=== PATIENT | female | born 1990 | race African-American/Black ===

== ENCOUNTER 2019-09-25 08:53 | Inpatient (IN) | payer OTHER ==
[2019-09-26] MEDS ORDERED: Promethazine HCl 25 MG/ML VIAL IM PRN ×2 (16:05→17:40)
[2019-09-26] MEDS ORDERED: Lactated Ringer's 1,000 ML IV SCH (16:05)
[2019-09-26] MEDS ORDERED: hydrALAZINE 20 MG/ML VIAL SLOW IVP PRN ×2 (16:05→19:21)
[2019-09-26] MEDS ORDERED: Ondansetron PF 4 MG/2 ML Vial IVP PRN ×3 (16:05→19:21)
[2019-09-26 16:13] VITALS: BMI 37.1
[2019-09-26] MEDS ORDERED: CEFAZOLIN 2 GM in Premix Bag 1 BAG IVPB SCH (16:15)
[2019-09-26] MEDS ORDERED: Bicitra 30 ML UDCUP PO SCH (16:15)
[2019-09-26 16:28] LABS: Hemoglobin 12.7 g/dL (12.0-16.0); Mean Corpuscular HGB CONC 34.7 g/dL (32.0-36.0); Mean Corpuscular Hemoglobin 29.6 pg (27.0-31.0); Mean Corpuscular Volume 85.2 fL (78.0-98.0); Mean Platelet Volume 8.6 fL (7.4-10.4); Platelet Count 180 thou/uL (130-400); RBC Distribution Width 12.2 % (11.5-14.5); Red Blood Cell (RBC) Count 4.29 mill/uL (4.20-5.40); White Blood Cell (WBC) Count 7.4 thou/uL (4.8-10.8)
[2019-09-26] MEDS ORDERED: Oxytocin 10 UNITS/ML VIAL ONE ×2 (16:52→18:52)
[2019-09-26] MEDS ORDERED: PHENYLEPHRINE-NS 100 MCG/ML 10 ML SYRINGE ONE (16:52)
[2019-09-26] MEDS ORDERED: MORPHINE 5 MG/10 ML PF VIAL ONE (16:52)
[2019-09-26 17:10] LABS: Syphilis Antibody Nonreactive (Nonreactive); Syphilis Antibody Index 0.04 S/CO (<1.00 Non-Reactive)
[2019-09-26] MEDS ORDERED: diphenhydrAMINE 50 MG/ML VIAL IVP PRN (17:40)
[2019-09-26] MEDS ORDERED: L&D-Morphine 4 MG/ML VIAL SLOW IVP PRN (17:40)
[2019-09-26] MEDS ORDERED: Naloxone HCl 0.4 mg/ml Vial IV PRN (17:40)
[2019-09-26] MEDS ORDERED: Ketorolac Tromethamine 30 MG/ML VIAL IVP PRN (17:40)
[2019-09-26] MEDS ORDERED: HYDROmorphone 2 MG/ML VIAL SLOW IVP PRN (17:40)
[2019-09-26] MEDS ORDERED: Ondansetron HCl/PF 4 MG/2 ML Vial IVP PRN (17:40)
[2019-09-26] MEDS ORDERED: Promethazine HCl 25 MG SUPP PR PRN (17:40)
[2019-09-26] MEDS ORDERED: Naloxone HCl 0.4 mg/ml Vial IVP PRN ×2 (17:40)
[2019-09-26] MEDS ORDERED: Meperidine HCl/PF 25 MG/ML VIAL SLOW IVP PRN (17:40)
[2019-09-26] MEDS ORDERED: Ketorolac Tromethamine 30 MG/ML VIAL IVP SCH (17:45)
[2019-09-26] MEDS ORDERED: Communication Order-Pharmacy FS SCH (17:45)
[2019-09-26 18:22] LABS: HBSAg Index 0.18 S/CO (0-0.99); Hep B Surf Ag NonReactive S/CO (NonReactive)
[2019-09-26] MEDS ORDERED: Bicitra 30 ML UDCUP ONE (18:31)
[2019-09-26] MEDS ORDERED: diphenhydrAMINE 25 MG CAP PO PRN (19:21)
[2019-09-26] MEDS ORDERED: Zolpidem Tartrate 5 MG TAB PO PRN (19:21)
[2019-09-26] MEDS ORDERED: Adacel (T-DAP) 0.5 ML SYRINGE IM ONE (19:21)
[2019-09-26] MEDS ORDERED: Bisacodyl 10 MG SUPP PR PRN (19:21)
[2019-09-26] MEDS ORDERED: Misoprostol 200 MCG TAB PR PRN (19:21)
[2019-09-26] MEDS ORDERED: Lanolin Ointment 7 GM TUBE TOP PRN (19:21)
[2019-09-26] MEDS ORDERED: Meperidine HCl/PF 25 MG/ML VIAL IM PRN (19:21)
[2019-09-26] MEDS ORDERED: Acetaminophen 325 MG TAB PO PRN (19:21)
[2019-09-26] MEDS ORDERED: NS / Oxytocin 40 units/1000ml 1,000 ML IV SCH (19:30)
[2019-09-26] MEDS ORDERED: Ketorolac Tromethamine 30 MG/ML VIAL ONE (20:06)
[2019-09-26] MEDS ORDERED: diphenhydrAMINE 50 MG/ML VIAL ONE (21:08)
[2019-09-27] MEDS: Docusate Calcium (SURFAK) 240 MG CAP PO SCH ×3 (01:40→21:23)
[2019-09-27] MEDS: Ibuprofen 800 MG TAB PO SCH ×4 (01:40→21:23)
[2019-09-27] MEDS: Ferrous Sulfate 325 MG TAB PO SCH ×3 (01:40→22:23)
[2019-09-27] MEDS: Simethicone Chewable 80 MG TAB PO PRN ×4 (01:46→22:12)
[2019-09-27] MEDS: Lactated Ringer's 1,000 ML IV SCH ×4 (01:46→21:33)
[2019-09-27 06:36] LABS: Hemoglobin 10.8 g/dL (12.0-16.0); Mean Corpuscular HGB CONC 34.3 g/dL (32.0-36.0); Mean Corpuscular Hemoglobin 29.4 pg (27.0-31.0); Mean Corpuscular Volume 85.7 fL (78.0-98.0); Mean Platelet Volume 8.6 fL (7.4-10.4); Platelet Count 140 thou/uL (130-400); RBC Distribution Width 12.1 % (11.5-14.5); Red Blood Cell (RBC) Count 3.66 mill/uL (4.20-5.40); White Blood Cell (WBC) Count 10.1 thou/uL (4.8-10.8)
[2019-09-27] MEDS: Prenatal Vitamin 1 TAB PO SCH (09:44)
[2019-09-27] MEDS: HYDROcodone/Acetaminophen 5/325 mg Tablet PO PRN ×4 (09:44→22:10)
[2019-09-28] MEDS: Simethicone Chewable 80 MG TAB PO PRN ×4 (02:00→21:52)
[2019-09-28] MEDS: Lactated Ringer's 1,000 ML IV SCH ×3 (03:50→22:44)
[2019-09-28] MEDS: Ibuprofen 800 MG TAB PO SCH ×3 (06:19→21:51)
[2019-09-28] MEDS: HYDROcodone/Acetaminophen 5/325 mg Tablet PO PRN ×2 (06:28→12:05)
[2019-09-28] MEDS: Prenatal Vitamin 1 TAB PO SCH (08:59)
[2019-09-28] MEDS: Ferrous Sulfate 325 MG TAB PO SCH ×2 (08:59→22:45)
[2019-09-28] MEDS: Docusate Calcium (SURFAK) 240 MG CAP PO SCH ×2 (08:59→21:52)
[2019-09-29] MEDS: HYDROcodone/Acetaminophen 5/325 mg Tablet PO PRN (03:34)
[2019-09-29] MEDS: Ibuprofen 800 MG TAB PO SCH (06:05)
[2019-09-29] MEDS: Lactated Ringer's 1,000 ML IV SCH (06:05)
[2019-09-29] MEDS: Ferrous Sulfate 325 MG TAB PO SCH (08:49)
[2019-09-29] MEDS: Prenatal Vitamin 1 TAB PO SCH (08:49)
[2019-09-29] MEDS: Docusate Calcium (SURFAK) 240 MG CAP PO SCH (08:49)
[2019-09-29 09:13] VITALS: BP 131/74; TEMP 98.1
== END 2019-09-29 12:20 | disposition home or self-care (01) | DRG 788 ==
LOC: EDSTATUS 12:19 → L&D-LIB 09-26 15:37 → UNDOADMIN 09-26 15:37 → L&D 09-26 15:37 → 3SW 09-26 21:58
PROVIDERS: ADMIT Obstetrics & Gynecology; ATTEND Obstetrics & Gynecology
PROC: 10D00Z1 Extraction of Products of Conception, Low, Open Approach (ICD-10-PCS; principal; 2019-09-26)
DX: O99.02 Anemia complicating childbirth (principal); D50.9 Iron deficiency anemia, unspecified; Z37.0 Single live birth; Z3A.37 37 weeks gestation of pregnancy
CPT/HCPCS: 36415; 85027; 85461; 86780; 86850; 86900; 86901; 87340; 88305; 90384; 96372; J0690; J1200; J1885; J2274; J2590; Q0163

== ENCOUNTER 2020-10-31 07:44 | Outpatient (CLI) | payer BC ==
[2020-10-31 18:30] LABS: SARS-CoV-2 PCR by NAA DETECTED (NotDetected)
== END 2020-10-31 07:45 | disposition home or self-care (01) ==
LOC: LABBT 07:44
PROVIDERS: ATTEND Obstetrics & Gynecology
DX: U07.1 COVID-19 (principal)
CPT/HCPCS: 87635; U0003; U0005